=== PATIENT | female | born 1990 | race African-American/Black ===

== ENCOUNTER 2018-07-27 09:54 | Emergency (ER) | payer OTHER ==
[~2018-07-27] VITALS: Ht 157.5 cm; Wt 95.3 kg
[2018-07-27 10:17] VITALS: BP 183/97
[2018-07-27] MEDS ORDERED: Lidocaine 2% MPF 5ml Vial INJ ONE (11:30)
[2018-07-27] MEDS ORDERED: DiphenhydrAMINE 50mg/ml Inj ONE (11:34)
[2018-07-27] MEDS ORDERED: Bacitracin Oint UD TOPIC ONE (12:45)
--- NOTE | 2018-07-27 13:13 | Emergency Room Report ---
History of Present Illness General Chief Complaint: Skin Rash/Abscess Source: Patient Present Illness HPI Patient states she has chronic boils in her right armpit. She states this is been going on for several years. She states she's been on antibiotics and they intermittently drain spontaneously. She denies fever or chills. She denies nausea or vomiting. She has no other complaints. Allergies: Coded Allergies: No Known Allergies (Unverified , 07/27/18) Patient History Past Medical History: none Social History: Denies: smoking, alcohol use, drug use Last Menstrual Period: last month Now: No Reviewed Nursing Documentation: PMH: Agreed; PSxH: Agreed Nursing Documentation-PMH Past Medical History: No Stated History Review of Systems All Other Systems: negative except mentioned in HPI Physical Exam Vital Signs Date Time Temp Pulse Resp B/P (MAP) Pulse Ox O2 Delivery O2 Flow Rate FiO2 07/27/18 10:07 98.3 77 18 183/97 98 Room Air 98.2 Sp02 EP Interpretation: reviewed, normal General Appearance: no apparent distress, alert, GCS 15, non-toxic Head: normocephalic, atraumatic Eyes: bilateral eye normal inspection, bilateral eye PERRL ENT: hearing grossly normal, normal pharynx, no angioedema, normal voice Neck: full range of motion, supple/symm/no masses Respiratory: chest non-tender, lungs clear, normal breath sounds, no respiratory distress, no retraction, no accessory muscle use, speaking full sentences Cardiovascular #1: regular rate, rhythm, no edema Gastrointestinal: normal bowel sounds, non tender, soft, non-distended, no guarding, no rebound Rectal: deferred Musculoskeletal: back normal, gait/station normal, normal range of motion, non- tender Neurologic: alert, oriented x3, responsive, motor strength/tone normal, sensory intact, speech normal Psychiatric: judgement/insight normal, memory normal, mood/affect normal, no suicidal/homicidal ideation Skin: warm/dry, well hydrated, other - Multiple areas of loculated and localized swelling (in follicular distribution). Medical Decision Making Diagnostic Impression: Primary Impression: Axillary hidradenitis suppurativa ER Course Patient has right axillary hidradenitis suppurativa. There was an area spontaneously draining in this area was extended to allow more draining with a # 11 blade. There are multiple areas of loculations and sebaceous buildup. The patient was educated that she would need to undergo surgical treatment for this and I recommended that she see a upholstered goods crafter and a plastic surgeon. I will place the patient on doxycycline as a precaution. The patient is given close return precautions and follow-up instructions. Last Vital Signs Date Time Temp Pulse Resp B/P (MAP) Pulse Ox O2 Delivery O2 Flow Rate FiO2 07/27/18 10:17 98.2 18 183/97 98 Room Air 98.2 07/27/18 10:07 77 Status: improved Disposition: HOME, SELF-CARE Condition: Improved Referrals: [facility],REFERRING (PCP) Evon Chavez DO Jul 27, 2018 13:13
[2018-07-27] MEDS ORDERED: DOXYCYCLINE MO100 MG ORAL (13:15)
[2018-07-27 13:22] VITALS: BP_SYST 149; BP_SYST 165; BP_DIAS 69; BP_DIAS 90
[2018-07-27] MEDS ORDERED: IBUPROFEN800 MG ORAL (13:27)
[2018-07-27 13:36] VITALS: BP 149/69
== END 2018-07-27 13:36 | disposition home or self-care (01) ==
LOC: EMR 11:02
DX: L73.2 Hidradenitis suppurativa (principal); L02.421 Furuncle of right axilla
CPT/HCPCS: 99283; J1200